=== PATIENT | male | born 1940 | race Caucasian/White ===

== ENCOUNTER → 2017-02-06 | Outpatient (CLI) | payer MEDICARE, OTHER ==
[~2017-02-06] MED LIST: AMLODIPINE5 MG PO; ANTIVERT 25MG25 MG PO; ASPIRIN 32325 MG/TAB PO; BENICAR40 MG PO; BUFFERED ASPIR325 M1 PO; CALTRATE 600 +1 TAB PO; CATAPRES 0.1MG0.1 MG PO; CELEXA40 MG PO; COUMADIN 5MG5 MG/TAB PO; COUMADIN 6MG6 MG/TAB PO; COZAAR100 MG PO; ERY-TAB500 MG PO; EXCEDRIN1 TAB PO; FISH OIL1 IU PO; FLAXSEED OIL1 CAP PO; FLONASE NASAL S16 GM NS; FLU VACCINE SQ; HCTZ PO; MUCINEX 60600 MG/TA1 PO; MULTIPLE VITAMI1 CAP PO; MULTIPLE VITAMI1 CTB PO; MVI; NORVASC 5MG5 MG/TAB PO; POTASSIUM CH2 MEQ/ML; PREDNISONE20 MG PO; PREVACID 15MG15 M1 PO; PRILOSEC 20MG20 MG PO; PRILOSEC40 MG PO; PROAIR HFA0.09 MG/AC IH; RANITIDINE 7575 MG PO; SINGULAIR 110 MG/TAB PO; STRATTERA80 MG PO; WARFARIN SODIUM5 MG PO; WELLBUTRIN SR150 MG PO; ZITHROMAX500 M2 PO; ZOLOFT 100MG100 MG PO; [UNRECOGNIZED DRUG - OTHER]
== END ==
LOC: BHSO 09:46
DX: F90.0 Attention-deficit hyperactivity disorder, predominantly inattentive type (principal)

== ENCOUNTER → 2017-04-09 | Outpatient (CLI) | payer MEDICARE, OTHER | LOC: BHSO 10:07 | DX: F90.0 Attention-deficit hyperactivity disorder, predominantly inattentive type (principal) ==

== ENCOUNTER → 2017-04-21 | Outpatient (CLI) | payer MEDICARE, OTHER | LOC: BHSO 09:46 | DX: F90.0 Attention-deficit hyperactivity disorder, predominantly inattentive type (principal) ==

== ENCOUNTER 2017-05-25 15:01 | Outpatient (RCR) | payer MEDICARE, OTHER | END 2017-08-23 | disposition still patient (30) | LOC: MKS.ESL.PT | DX: M15.0 Primary generalized (osteo)arthritis (principal); G14 Postpolio syndrome; R26.81 Unsteadiness on feet | CPT/HCPCS: G8978-GP; G8979-GP ==

== ENCOUNTER → 2017-06-08 | Outpatient (CLI) | payer MEDICARE, OTHER | LOC: BHSO 08:55 | DX: F90.0 Attention-deficit hyperactivity disorder, predominantly inattentive type (principal) ==

== ENCOUNTER → 2017-07-15 | Outpatient (CLI) | payer MEDICARE, OTHER | LOC: BHSO 08:43 | DX: F90.0 Attention-deficit hyperactivity disorder, predominantly inattentive type (principal) ==

== ENCOUNTER 2017-09-30 07:17 | Inpatient (IN) | payer MEDICARE, OTHER ==
[~2017-09-30] VITALS: Ht 188 cm; Wt 87.9 kg
[2017-09-30] VITALS (519 sets, daily range): BP systolic 123–148; BP diastolic 82–101; PULSE 13–96; TEMP 98.1–99.4; O2SAT 74–100
[2017-09-30] MEDS ORDERED: CARDIZEM 30MG T30 MG (07:36)
[2017-09-30 08:00] LABS: BASO # 0.1 (0.0-0.2); BASO % 0.4 % (0.0-2.0); EOS # 0.2 (0.0-0.7); EOS % 1.3 % (0-4.0); GRAN % 67.1 % (42.2-75.2); HEMATOCRIT 45.5 % (42.0-52.0); HEMOGLOBIN 15.9 g/dl (13.5-18.0); MEAN CELL VOLUME 88 fl (80.0-100.0); MEAN CORPUSCULAR HEMOGLOBIN 31 pg (27.0-31.0); MEAN CORPUSCULAR HGB CONC 35 g/dl (33.0-37.0); MEAN PLATELET VOLUME 11.3 fl (7.4-10.4); MONO # 1.2 (0.1-0.6); MONO % 8.9 % (1.7-9.3); PLATELET COUNT 269 K/mm3 (130-400); RED BLOOD COUNT 5.17 M/mm3 (4.20-5.60); WHITE BLOOD COUNT 13.4 K/mm3 (4.8-10.8)
[2017-09-30 08:03] LABS: INR 3.4 (0.8-3.0); PROTHROMBIN TIME 40.1 SECONDS (9.7-12.8)
[2017-09-30 08:31] LABS: ADJUSTED CALCIUM 9.4 mg/dL (8.4-10.2); ALBUMIN 4.1 gm/dL (3.5-5.0); BILIRUBIN,TOTAL 0.9 mg/dL (0.0-1.0); CALCIUM 9.5 mg/dL (8.4-10.2); CREATININE, serum 0.76 mg/dL (0.66-1.25); POTASSIUM 3.4 mmol/L (3.4-5.0); TOTAL PROTEIN 7.1 gm/dL (6.4-8.2)
[2017-09-30] MEDS ORDERED: CARDIZEM CD 12120 MG PO (13:30)
[2017-09-30] MEDS ORDERED: COUMADIN 5MG5 MG/TAB PO (13:33)
[2017-09-30] MEDS ORDERED: K-DUR20 MEQ PO (13:36)
[2017-09-30] MEDS ORDERED: TAMBOCOR 1100 MG/TAB PO (13:37)
[2017-09-30] MEDS ORDERED: RITALIN10 MG PO (13:39)
[2017-09-30] MEDS ORDERED: RESTORIL 1515 MG/CAP PO (13:43)
[2017-09-30 14:17] LABS: HEMATOCRIT 42.7 % (42.0-52.0); HEMOGLOBIN 14.8 g/dl (13.5-18.0)
[2017-09-30] MEDS ORDERED: PREDFORTE5ML (14:46)
[2017-09-30] MEDS ORDERED: NEVANAC 3 ML3 ML OU (14:48)
[2017-09-30 20:10] LABS: HEMOGLOBIN 12.9 g/dl (13.5-18.0)
[2017-09-30 20:15] LABS: HEMATOCRIT 36.6 % (42.0-52.0)
[2017-09-30 21:26] LABS: PH 7 (5-8); SQUAMOUS EPITHELIAL None Seen /hpf; URINE APPEARANCE Clear; URINE BACTERIA None Seen /hpf; URINE BILIRUBIN Negative (NEGATIVE); URINE BLOOD Negative (NEGATIVE); URINE COLOR Straw; URINE GLUCOSE 1+ (NEGATIVE); URINE KETONE Negative (NEGATIVE); URINE LEUKOCYTE ESTERASE Negative (NEGATIVE); URINE PROTEIN(semi-quant) Negative (NEGATIVE); URINE RBC 0-2 /hpf; URINE UROBILINOGEN Negative (NEGATIVE); URINE WBC None Seen /hpf
[2017-10-01] VITALS (659 sets, daily range): BP systolic 102–147; BP diastolic 63–91; PULSE 84–99; TEMP 98.2–98.7; O2SAT 66–100
[2017-10-01 00:36] LABS: HEMATOCRIT 40.6 % (42.0-52.0); HEMOGLOBIN 14.2 g/dl (13.5-18.0)
[2017-10-01 05:43] LABS: BASO % 0.1 % (0.0-2.0); GRAN # 19.7 (1.4-6.5); GRAN % 84.1 % (42.2-75.2); HEMATOCRIT 40.4 % (42.0-52.0); HEMOGLOBIN 13.8 g/dl (13.5-18.0); LYMPH # 2.3 (1.2-3.4); LYMPH % 9.7 % (20.0-51.0); MEAN CELL VOLUME 89 fl (80.0-100.0); MEAN CORPUSCULAR HEMOGLOBIN 31 pg (27.0-31.0); MEAN CORPUSCULAR HGB CONC 34 g/dl (33.0-37.0); MEAN PLATELET VOLUME 10.9 fl (7.4-10.4); MONO # 1.3 (0.1-0.6); MONO % 5.5 % (1.7-9.3); PLATELET COUNT 281 K/mm3 (130-400); RED BLOOD COUNT 4.53 M/mm3 (4.20-5.60)
[2017-10-01 05:46] LABS: WHITE BLOOD COUNT 23.4 K/mm3 (4.8-10.8)
[2017-10-01 05:54] LABS: PROTHROMBIN TIME 22.5 SECONDS (9.7-12.8)
[2017-10-01 05:57] LABS: CALCIUM 8.8 mg/dL (8.4-10.2); CREATININE, serum 0.64 mg/dL (0.66-1.25); MAGNESIUM 1.7 mg/dL (1.6-2.3); POTASSIUM 3.1 mmol/L (3.4-5.0)
[2017-10-01 06:23] LABS: COLLECTION METHOD CLEAN CATCH
[2017-10-02 03:46] VITALS: BP 133/72; PULSE 84; TEMP 98
[2017-10-02 07:47] VITALS: BP 138/76; PULSE 83; TEMP 98
[2017-10-02 08:16] LABS: ADD PATHOLOGY DIFF REVIEW NO
[2017-10-02 08:24] LABS: MEAN CELL VOLUME 91 fl (80.0-100.0); MEAN CORPUSCULAR HGB CONC 34 g/dl (33.0-37.0); MEAN PLATELET VOLUME 11.3 fl (7.4-10.4); PLATELET COUNT 222 K/mm3 (130-400); RED BLOOD COUNT 3.84 M/mm3 (4.20-5.60)
[2017-10-02 08:27] LABS: HEMATOCRIT 35.1 % (42.0-52.0); HEMOGLOBIN 11.9 g/dl (13.5-18.0); MEAN CORPUSCULAR HEMOGLOBIN 31 pg (27.0-31.0)
[2017-10-02 08:38] LABS: CALCIUM 8.8 mg/dL (8.4-10.2); CREATININE, serum 0.75 mg/dL (0.66-1.25); MAGNESIUM 2.1 mg/dL (1.6-2.3); POTASSIUM 3.4 mmol/L (3.4-5.0)
[2017-10-02 09:25] LABS: BAND 6 % (0-10); EOSINOPHIL 1 % (0-4); LYMPHOCYTE 17 % (20.0-51.0); NEUTROPHILS 67 % (42.0-75.2); TOTAL CELLS COUNTED 100
[2017-10-02 11:53] VITALS: BP 142/78; PULSE 82; TEMP 98.2
[2017-10-02 13:16] LABS: INR 1.3 (0.8-3.0); PROTHROMBIN TIME 15.1 SECONDS (9.7-12.8)
[2017-10-02] MEDS ORDERED: ZESTRIL 5MG5 MG PO (14:34)
[2017-10-02] MEDS ORDERED: NORCO 325 MG-51 TAB PO (14:35)
== END 2017-10-02 17:00 | disposition home or self-care (01) | DRG 151 ==
LOC: COL.ER 07:17 → ICU 10:00 → MEDICAL 10-01 11:03 → ICU 10-01 11:03 → MEDICAL 10-01 14:33
PROVIDERS: Emergency Medicine; Internal Medicine; Nurse Practitioner; Physician Assistant
PROC: 2Y41X5Z Packing of Nasal Region using Packing Material (ICD-10-PCS; principal; 2017-09-30)
DX: R04.0 Epistaxis (principal); Z79.01 Long term (current) use of anticoagulants; I16.0 Hypertensive urgency; I10 Essential (primary) hypertension; E87.6 Hypokalemia; I48.91 Unspecified atrial fibrillation; Z87.891 Personal history of nicotine dependence
CPT/HCPCS: 99223-AI; 99233-AI; 99238; G0378; J1170; J2270; J2405; J2550; J3010; J3475; J7030; J7050

== ENCOUNTER → 2018-01-06 | Outpatient (CLI) | payer MEDICARE, OTHER ==
[~2018-01-06] MED LIST changes: +CARDIZEM 30MG T30 MG; +CARDIZEM CD 12120 MG PO; +K-DUR20 MEQ PO; +NEVANAC 3 ML3 ML OU; +NORCO 325 MG-51 TAB PO; +PREDFORTE5ML; +RESTORIL 1515 MG/CAP PO; +RITALIN10 MG PO; +TAMBOCOR 1100 MG/TAB PO; +ZESTRIL 5MG5 MG PO
== END ==
LOC: BHSO 08:30
DX: F90.0 Attention-deficit hyperactivity disorder, predominantly inattentive type (principal)
CPT/HCPCS: G0463

== ENCOUNTER → 2018-04-07 | Outpatient (CLI) | payer MEDICARE, OTHER | LOC: BHSO 08:40 | DX: F90.0 Attention-deficit hyperactivity disorder, predominantly inattentive type (principal) | CPT/HCPCS: G0463 ==

== ENCOUNTER → 2018-06-16 | Outpatient (RCR) | payer MEDICARE, OTHER | END | disposition home or self-care (01) | LOC: MKS.ESL.PT | DX: M16.12 Unilateral primary osteoarthritis, left hip (principal); M70.61 Trochanteric bursitis, right hip; G14 Postpolio syndrome; Z96.641 Presence of right artificial hip joint | CPT/HCPCS: G8978-GP; G8979-GP ==

== ENCOUNTER → 2018-10-06 | Outpatient (CLI) | payer MEDICARE, OTHER | LOC: BHSO 07:51 | DX: F90.0 Attention-deficit hyperactivity disorder, predominantly inattentive type (principal) | CPT/HCPCS: G0463 ==

== ENCOUNTER 2018-10-29 08:00 | Outpatient (RCR) | payer MEDICARE, OTHER | END 2018-11-07 | disposition home or self-care (01) | LOC: MKS.ESL.PT | DX: M16.12 Unilateral primary osteoarthritis, left hip (principal); M70.61 Trochanteric bursitis, right hip; G14 Postpolio syndrome; Z96.641 Presence of right artificial hip joint ==

== ENCOUNTER → 2018-12-09 | Outpatient (CLI) | payer MEDICARE, OTHER | LOC: BHSO 08:48 | DX: F90.0 Attention-deficit hyperactivity disorder, predominantly inattentive type (principal) | CPT/HCPCS: G0463 ==

== ENCOUNTER 2019-01-10 08:30 | Outpatient (RCR) | payer MEDICARE, OTHER | END 2019-02-15 | LOC: MKS.ESL.PT | DX: M16.12 Unilateral primary osteoarthritis, left hip (principal); M70.61 Trochanteric bursitis, right hip ==

== ENCOUNTER 2019-05-16 08:30 | Outpatient (RCR) | payer MEDICARE, OTHER | END 2019-05-17 | LOC: MKS.ESL.PT | DX: M16.12 Unilateral primary osteoarthritis, left hip (principal); M70.61 Trochanteric bursitis, right hip; G14 Postpolio syndrome; M54.2 Cervicalgia; Z96.641 Presence of right artificial hip joint ==

== ENCOUNTER 2019-08-12 08:45 | Outpatient (RCR) | payer MEDICARE, OTHER | END 2019-08-18 | disposition home or self-care (01) | LOC: MKS.ESL.PT | DX: M16.12 Unilateral primary osteoarthritis, left hip (principal); G14 Postpolio syndrome; M54.2 Cervicalgia ==

== ENCOUNTER 2019-10-26 10:30 | Outpatient (RCR) | payer MEDICARE, OTHER | END 2019-12-01 | disposition home or self-care (01) | LOC: MKS.ESL.PT | DX: G14 Postpolio syndrome (principal); G89.29 Other chronic pain; R26.9 Unspecified abnormalities of gait and mobility; M54.2 Cervicalgia; M54.5 Low back pain ==

== ENCOUNTER 2019-12-07 16:44 | Outpatient (RCR) | payer MEDICARE, OTHER | END 2020-03-06 | disposition home or self-care (01) | LOC: MKS.ESL.PT | DX: M16.12 Unilateral primary osteoarthritis, left hip (principal); M54.2 Cervicalgia; G14 Postpolio syndrome ==

== ENCOUNTER 2020-05-30 13:45 | Outpatient (RCR) | payer MEDICARE, OTHER | END 2020-06-05 | disposition home or self-care (01) | LOC: MKS.ESL.PT | DX: M16.12 Unilateral primary osteoarthritis, left hip (principal); G14 Postpolio syndrome; M54.2 Cervicalgia ==

== ENCOUNTER 2020-09-21 14:00 | Outpatient (RCR) | payer MEDICARE, OTHER | END 2020-10-02 | disposition home or self-care (01) | LOC: MKS.ESL.PT | DX: G89.29 Other chronic pain (principal) ==

== ENCOUNTER 2020-10-15 16:26 | Outpatient (RCR) | payer MEDICARE, OTHER | END 2020-12-03 | disposition home or self-care (01) | LOC: MKS.ESL.PT | DX: M16.12 Unilateral primary osteoarthritis, left hip (principal); M54.2 Cervicalgia; G14 Postpolio syndrome ==

== ENCOUNTER 2021-01-14 08:39 | Outpatient (RCR) | payer MEDICARE, OTHER | END 2021-02-08 11:25 | disposition home or self-care (01) | LOC: MKS.ESL.PT 08:39 | DX: M16.12 Unilateral primary osteoarthritis, left hip (principal); G14 Postpolio syndrome; M54.2 Cervicalgia ==

== ENCOUNTER → 2021-03-04 | Outpatient (CLI) | payer MEDICARE, OTHER ==
[~2021-03-04] MED LIST changes: +ADVIL200 MG PO; +BETAPACE 80MG80 MG PO; +COZAAR 50MG50 MG/TAB PO; +ELIQUIS 5MG PO; +FLONASE SENSIM9.9 ML NS; +HCTZ 25MG TAB25 MG PO; +KLONOPIN 0.5MG0.5 MG PO; +LIPITOR 80MG80 MG PO; +NORVASC 10MG10 MG PO; +OMEGA-3 1000 MG1 CAP PO; +ROBAXIN 50500 MG/TAB PO; +TYLENOL 325MG325 MG PO; +VITAMIN D31000 I1 PO; +WELLBUTRIN XL300 M1 PO
== END ==
LOC: COL.RAD 14:31
DX: M43.22 Fusion of spine, cervical region (principal); M50.30 Other cervical disc degeneration, unspecified cervical region; M47.12 Other spondylosis with myelopathy, cervical region

== ENCOUNTER → 2021-03-04 | Outpatient (CLI) | payer MEDICARE, OTHER | LOC: MHCPAIN 13:20 | DX: M47.812 Spondylosis without myelopathy or radiculopathy, cervical region (principal); M47.12 Other spondylosis with myelopathy, cervical region; R51.9 Headache, unspecified; G89.29 Other chronic pain | CPT/HCPCS: G0463 ==

== ENCOUNTER → 2021-03-25 | Outpatient (CLI) | payer MEDICARE, OTHER | LOC: MHCPAIN 09:47 | DX: M79.18 Myalgia, other site (principal); M54.81 Occipital neuralgia; R51.9 Headache, unspecified; M54.2 Cervicalgia | CPT/HCPCS: J0461; J1040 ==

== ENCOUNTER → 2021-04-16 | Outpatient (CLI) | payer MEDICARE, OTHER | LOC: COL.RAD 14:24 | DX: M47.812 Spondylosis without myelopathy or radiculopathy, cervical region (principal); Z98.1 Arthrodesis status ==

== ENCOUNTER 2021-07-03 17:16 | Inpatient (IN) | payer MEDICARE, OTHER ==
[~2021-07-03] VITALS: Ht 180.3 cm; Wt 90.2 kg
[~2021-07-03 17:16] MED LIST changes: -ADVIL200 MG PO; -BETAPACE 80MG80 MG PO; -COZAAR 50MG50 MG/TAB PO; -ELIQUIS 5MG PO; -FLONASE SENSIM9.9 ML NS; -HCTZ 25MG TAB25 MG PO; -KLONOPIN 0.5MG0.5 MG PO; -LIPITOR 80MG80 MG PO; -NORVASC 10MG10 MG PO; -OMEGA-3 1000 MG1 CAP PO; -ROBAXIN 50500 MG/TAB PO; -TYLENOL 325MG325 MG PO; -VITAMIN D31000 I1 PO; -WELLBUTRIN XL300 M1 PO
[2021-07-03 18:11] LABS: BASO # 0.1 (0.0-0.2); BASO % 0.7 % (0.0-2.0); EOS # 0.3 (0.0-0.7); EOS % 2.8 % (0-4.0); GRAN % 60.1 % (42.2-75.2); HEMATOCRIT 49.5 % (42.0-52.0); HEMOGLOBIN 16.7 g/dl (13.5-18.0); LYMPH % 25.9 % (20.0-51.0); MEAN CELL VOLUME 91 fl (80.0-100.0); MEAN CORPUSCULAR HEMOGLOBIN 31 pg (27.0-31.0); MEAN CORPUSCULAR HGB CONC 34 g/dl (33.0-37.0); MEAN PLATELET VOLUME 11.1 fl (7.4-10.4); MONO # 1.2 (0.1-0.6); MONO % 10.2 % (1.7-9.3); PLATELET COUNT 320 K/mm3 (130-400); RED BLOOD COUNT 5.44 M/mm3 (4.20-5.60); REDCELL DISTRIBUTION WIDTH-CV 12.8 % (11.5-14.5)
[2021-07-03 18:20] LABS: ALBUMIN 4.2 gm/dL (3.5-5.0); BILIRUBIN,TOTAL 0.4 mg/dL (0.0-1.0); CALCIUM 9.3 mg/dL (8.4-10.2); CREATININE, serum 0.96 (0.66-1.25); POTASSIUM 3.8 mmol/L (3.4-5.0); TOTAL PROTEIN 7.7 gm/dL (6.4-8.2)
[2021-07-03 18:32] LABS: TROPONIN-I 0.014 ng/mL (0.000-0.035)
[2021-07-03] MEDS ORDERED: FLONASE SENSIM9.9 ML NS (19:05)
[2021-07-03] MEDS ORDERED: KLONOPIN 0.5MG0.5 MG PO (19:06)
[2021-07-03] MEDS ORDERED: NORVASC 10MG10 MG PO (19:07)
[2021-07-03] MEDS ORDERED: HCTZ 25MG TAB25 MG PO (19:07)
[2021-07-03] MEDS ORDERED: COZAAR100 MG PO (19:07)
[2021-07-03] MEDS ORDERED: WELLBUTRIN XL300 M1 PO (19:08)
[2021-07-03] MEDS ORDERED: PRILOSEC 20MG20 MG PO (19:08)
[2021-07-03] MEDS ORDERED: OMEGA-3 1000 MG1 CAP PO (19:11)
[2021-07-03] MEDS ORDERED: VITAMIN D31000 I1 PO (19:11)
[2021-07-03] MEDS ORDERED: EXCEDRIN1 TAB PO (19:12)
[2021-07-03] MEDS ORDERED: TYLENOL 325MG325 MG PO (19:12)
[2021-07-03] MEDS ORDERED: ADVIL200 MG PO (19:13)
--- NOTE | 2021-07-03 21:53 | NUR ---
PATIENT ARRIVED FROM ER VIA [facility] BY NURSE OSEGUERA. PATIENT ALERT AND ORIENTED X4. IV HEPARIN AND IV CARDIZEM. PATIENT ORIENTED TO ROOM, CALL LIGHT WITHIN REACH.
[2021-07-03 22:02] VITALS: BP 131/75; PULSE 82; TEMP 97.9
[2021-07-03 22:08] LABS: TSH w REFLEX 2.24 uIU/mL (0.465-4.680)
[2021-07-03 22:59] VITALS: BP 117/75; PULSE 81; TEMP 98
[2021-07-04] VITALS (19 sets, daily range): BP systolic 110–143; BP diastolic 68–92; PULSE 57–83; TEMP 97.5–98.3
--- NOTE | 2021-07-04 02:26 | NUR ---
HEPARIN-XA 1.56 STOPPED INFUSION AT 0225AM FOR 1 HOUR.
--- NOTE | 2021-07-04 04:07 | NUR ---
HEPARIN RESTARTED AT 1550 UNITS/HR. NEXT HEPARIN-XA AT 0930AM.
[2021-07-04 07:17] LABS: BASO # 0.1 (0.0-0.2); BASO % 0.7 % (0.0-2.0); EOS # 0.3 (0.0-0.7); EOS % 3.1 % (0-4.0); GRAN # 6.1 (1.4-6.5); GRAN % 57.6 % (42.2-75.2); HEMATOCRIT 47.1 % (42.0-52.0); HEMOGLOBIN 15.9 g/dl (13.5-18.0); LYMPH # 3.1 (1.2-3.4); LYMPH % 29.1 % (20.0-51.0); MEAN CELL VOLUME 91 fl (80.0-100.0); MEAN CORPUSCULAR HEMOGLOBIN 31 pg (27.0-31.0); MEAN CORPUSCULAR HGB CONC 34 g/dl (33.0-37.0); MEAN PLATELET VOLUME 11.5 fl (7.4-10.4); MONO % 9.2 % (1.7-9.3); PLATELET COUNT 264 K/mm3 (130-400); RED BLOOD COUNT 5.17 M/mm3 (4.20-5.60); REDCELL DISTRIBUTION WIDTH-CV 12.8 % (11.5-14.5)
[2021-07-04 07:30] LABS: CALCIUM 8.9 mg/dL (8.4-10.2); CREATININE, serum 0.78 (0.66-1.25); POTASSIUM 3.2 mmol/L (3.4-5.0)
[2021-07-04 13:02] LABS: PARTIAL THROMBOPLASTIN TIME 53.3 SECONDS (26.0-37.0)
--- NOTE | 2021-07-04 13:51 | NUR ---
Patient is seen in bed and his Rosa walked in while we were talking. Patient lives at home with his Rosa, #[phone]. Patient states he has a DPOA and living will completed that names Rosa as his decision maker, copies on file with attorney recruiter and this hospital but no record is found in [facility] at this time. Patient states he uses crutches/walking sticks d/t hip pain and a CPAP at home. His PCP is Dr. Winston Vasquez here in [place]. Preferred pharmacy [facility] in [facility]. Patient does not anticipate any home health needs or have any concerns about this hospital stay. Rosa is in agreement and patient expects to return home with his . DISCHARGE PLAN: HOME WITH SUPPORT
--- NOTE | 2021-07-04 15:11 | NUR ---
1000;PLANS SPONGE BATH AFTER STABLE CARDIO-VERSION THIS A.M. PER
--- NOTE | 2021-07-04 15:39 | NUR ---
Pt A&O, independent in room, on room air, breathing is even and unlabored. Pt denies pain, dizziness, N/V/D, chest pain, SOB. Pt hep XA @ 0930 lab draw elevated >1, stopped 2 hrs per protocol, redraw Hep XA 2 hrs post. Lab up to room to redraw @ 1215. Pt down for rn labor delivery procedure @ 1300 prior to hep xa lab results returning. Pt returned from procedure @ 1415. Pt A&O, denies pain. Tolerating PO well. Hep gtt and cardizem gtt DC'd. K+ replacement switched from IV to PO. Pt tolerating well. No further concerns expressed at this time. IVs INT.
[2021-07-05] VITALS (15 sets, daily range): BP systolic 94–151; BP diastolic 55–89; PULSE 49–74; TEMP 97.4–98.4
--- NOTE | 2021-07-05 06:15 | NUR ---
PATIENT SLEPT WELL NO COMPLAINTS OVER NIGHT. VSS. DENIES SOB OR CHEST PAIN. NPO FOR LOOP RECORDER REMOVAL TODAY. PATIENT INDEPENDENT IN ROOM. WILL CONTINUE TO MONITOR.
[2021-07-05 07:02] LABS: HEMATOCRIT 49.1 % (42.0-52.0); HEMOGLOBIN 16.1 g/dl (13.5-18.0); MEAN CELL VOLUME 93 fl (80.0-100.0); MEAN CORPUSCULAR HEMOGLOBIN 30 pg (27.0-31.0); MEAN CORPUSCULAR HGB CONC 33 g/dl (33.0-37.0); MEAN PLATELET VOLUME 11.7 fl (7.4-10.4); PLATELET COUNT 278 K/mm3 (130-400); RED BLOOD COUNT 5.31 M/mm3 (4.20-5.60); REDCELL DISTRIBUTION WIDTH-CV 12.8 % (11.5-14.5)
[2021-07-05 07:13] LABS: CALCIUM 9.1 mg/dL (8.4-10.2); CREATININE, serum 0.83 (0.66-1.25); MAGNESIUM 2.3 mg/dL (1.6-2.3); POTASSIUM 4.2 mmol/L (3.4-5.0)
--- NOTE | 2021-07-05 09:45 | NUR ---
Patient alert and oriented, answers questions appropriately. See assessment. Heart tones strong and even, radial pulses palpable. No c/o chest pain or pressure. Telemetry in place. Ambulates independently in room. No c/o at this time.
--- NOTE | 2021-07-05 10:45 | NUR ---
Initial visit; Patient thanked Iron Worker Apprentice for looking in on him, offering prayer and God's blessings.
--- NOTE | 2021-07-05 11:22 | NUR ---
To laborer shaft sinking with laborer shaft sinking staff at this time.
--- NOTE | 2021-07-05 11:39 | NUR ---
SEE MERGE DOCUMENTATION FOR MEDICATION ADMINISTRATION TIMES AND INTRA/POST PROCEDURE SEDATION ASSESSMENTS.
--- NOTE | 2021-07-05 14:05 | NUR ---
Patient returned from laborer hoisting at 1215. Assessment unchanged except dressing to left chest wall CDI. No c/o pain or discomfort. No other c/o at this time.
--- NOTE | 2021-07-05 19:17 | NUR ---
PATIENT RESTING IN BED ASSESSMENT DONE. A+OX4. DENIES ANY DISCOMFORT, NO CHEST PAIN. AT BEDSIDE. CALL LIGHT WITHIN REACH. WILL CONTINUE TO MONITOR.
[2021-07-06 00:08] VITALS: BP 148/74; PULSE 59; TEMP 97.9
[2021-07-06 03:42] VITALS: BP 137/73; PULSE 58; TEMP 98
[2021-07-06 06:46] LABS: HEMATOCRIT 44.6 % (42.0-52.0); HEMOGLOBIN 14.9 g/dl (13.5-18.0); MEAN CELL VOLUME 93 fl (80.0-100.0); MEAN CORPUSCULAR HEMOGLOBIN 31 pg (27.0-31.0); MEAN CORPUSCULAR HGB CONC 33 g/dl (33.0-37.0); MEAN PLATELET VOLUME 11.7 fl (7.4-10.4); PLATELET COUNT 222 K/mm3 (130-400); REDCELL DISTRIBUTION WIDTH-CV 12.6 % (11.5-14.5)
[2021-07-06 06:54] LABS: CALCIUM 8.9 mg/dL (8.4-10.2); CREATININE, serum 0.85 (0.66-1.25); POTASSIUM 4.1 mmol/L (3.4-5.0)
[2021-07-06 08:00] VITALS: BP 136/79; PULSE 63; TEMP 97.5
--- NOTE | 2021-07-06 10:55 | NUR ---
Patient alert and oriented, answers questions appropriately. See assessment. Heart tones strong and even, radial pulses palpable. No c/o chest pain or pressure. Incision site to left chest with edges well approximated, no redness or drainage noted, steri strips in place. Anxious to discharge to home. No c/o at this time.
[2021-07-06] MEDS ORDERED: BETAPACE 80MG80 MG PO (11:01)
[2021-07-06] MEDS ORDERED: ELIQUIS 5MG PO (11:01)
[2021-07-06] MEDS ORDERED: COZAAR 50MG50 MG/TAB PO (11:05)
--- NOTE | 2021-07-06 12:25 | NUR ---
Discharge instructions reviewed with patient, verbalized understanding. Discharged ambulatory to auto/home at 1205.
== END 2021-07-06 12:05 | disposition home or self-care (01) | DRG 260 ==
LOC: COL.ER 17:16 → SURG 18:47
PROVIDERS: Nurse Practitioner; Nurse Practitioner Family; Physician Assistant; Student in an Organized Health Care Education/Training Program; ADMIT Internal Medicine
PROC: 5A2204Z Restoration of Cardiac Rhythm, Single (ICD-10-PCS; principal; 2021-07-03)
PROC: 0JH632Z Insertion of Monitoring Device into Chest Subcutaneous Tissue and Fascia, Percutaneous Approach (ICD-10-PCS; 2021-07-05)
PROC: 0JPT32Z Removal of Monitoring Device from Trunk Subcutaneous Tissue and Fascia, Percutaneous Approach (ICD-10-PCS; 2021-07-05)
DX: I48.91 Unspecified atrial fibrillation (principal); I21.A1 Myocardial infarction type 2; I47.1 Supraventricular tachycardia; I10 Essential (primary) hypertension; Z96.641 Presence of right artificial hip joint; K21.9 Gastro-esophageal reflux disease without esophagitis; G89.29 Other chronic pain; E87.6 Hypokalemia; R73.9 Hyperglycemia, unspecified; D72.829 Elevated white blood cell count, unspecified; Z20.822 Contact with and (suspected) exposure to COVID-19
CPT/HCPCS: 99223-AI; 99232-AI; 99239; C1764; J1644; J2250; J2704; J3010; J3480

== ENCOUNTER 2021-07-24 13:00 | Outpatient (RCR) | payer MEDICARE, OTHER ==
[~2021-07-24 13:00] MED LIST changes: +ADVIL200 MG PO; +BETAPACE 80MG80 MG PO; +COZAAR 50MG50 MG/TAB PO; +ELIQUIS 5MG PO; +FLONASE SENSIM9.9 ML NS; +HCTZ 25MG TAB25 MG PO; +KLONOPIN 0.5MG0.5 MG PO; +NORVASC 10MG10 MG PO; +OMEGA-3 1000 MG1 CAP PO; +TYLENOL 325MG325 MG PO; +VITAMIN D31000 I1 PO; +WELLBUTRIN XL300 M1 PO
== END 2021-08-18 | disposition still patient (30) ==
LOC: MKS.ESL.PT
DX: M54.2 Cervicalgia (principal)

== ENCOUNTER 2021-09-05 07:22 | Day surgery (SDC) | payer MEDICARE, OTHER ==
[~2021-09-05] VITALS: Ht 180.3 cm; Wt 91.0 kg
[2021-09-05] VITALS (9 sets, daily range): BP systolic 126–164; BP diastolic 76–98; PULSE 60–66; TEMP 98.5
[2021-09-05] MEDS ORDERED: ELIQUIS 5MG PO (08:44)
[2021-09-05 08:49] LABS: HEMATOCRIT 42.8 % (42.0-52.0); HEMOGLOBIN 14.6 g/dl (13.5-18.0); MEAN CELL VOLUME 89 fl (80.0-100.0); MEAN CORPUSCULAR HEMOGLOBIN 30 pg (27.0-31.0); MEAN CORPUSCULAR HGB CONC 34 g/dl (33.0-37.0); MEAN PLATELET VOLUME 10.6 fl (7.4-10.4); PLATELET COUNT 302 K/mm3 (130-400); REDCELL DISTRIBUTION WIDTH-CV 13.4 % (11.5-14.5)
[2021-09-05] MEDS ORDERED: COZAAR100 MG PO (08:50)
[2021-09-05] MEDS ORDERED: NORVASC 5MG5 MG/TAB PO (08:53)
[2021-09-05] MEDS ORDERED: ROBAXIN 50500 MG/TAB PO (08:54)
[2021-09-05 09:05] LABS: PROTHROMBIN TIME 11.1 SECONDS (9.7-12.8)
[2021-09-05 09:06] LABS: CALCIUM 9.1 mg/dL (8.4-10.2); CREATININE, serum 0.79 mg/dL (0.72-1.25); POTASSIUM 3.6 mmol/L (3.5-4.5)
[2021-09-05 09:08] LABS: PARTIAL THROMBOPLASTIN TIME 26.6 SECONDS (26.0-37.0)
[2021-09-05] MEDS ORDERED: LIPITOR 80MG80 MG PO (10:29)
--- NOTE | 2021-09-05 10:30 | NUR ---
Pt back from analytical laboratory technician. Pt is relaxed, resting comfortably. Pt is pwd with reg and unlabored respirations. TR band in place to rt wrist cms intact. telemetry initiated. lunch ordered. call light in reach.
--- NOTE | 2021-09-05 13:30 | NUR ---
Pt has done well during his recovery. TR band has been deflated with no problem. Site dressed with bandaid, folded 2x2 and coban. cms remains intact distal. Pt has been up and ambulatory in room with no problem. IV is dc'd with cath intact dressing applied. I have reviewed dc/rx and fu instructions with pt who verbalized understanding. I escorted pt to exit via wheelchair.
== END 2021-09-05 20:10 | disposition home or self-care (01) ==
LOC: COL.CAR 07:22
PROVIDERS: Internal Medicine Cardiovascular Disease
DX: I25.10 Atherosclerotic heart disease of native coronary artery without angina pectoris (principal); I10 Essential (primary) hypertension; I48.91 Unspecified atrial fibrillation; I48.92 Unspecified atrial flutter; R94.39 Abnormal result of other cardiovascular function study
CPT/HCPCS: J1644; J2250; J3010; Q9967

== ENCOUNTER → 2022-06-04 | Outpatient (CLI) | payer MEDICARE, OTHER ==
[~2022-06-04] MED LIST changes: +LIPITOR 80MG80 MG PO; +ROBAXIN 50500 MG/TAB PO
== END ==
LOC: COL.RAD 05-15 10:30
DX: M25.552 Pain in left hip (principal)

== ENCOUNTER 2023-03-25 11:15 | Outpatient (RCR) | payer MEDICARE, OTHER | END 2023-03-29 | disposition home or self-care (01) | LOC: MKS.ESL.PT | DX: R26.89 Other abnormalities of gait and mobility (principal); Z96.642 Presence of left artificial hip joint ==

== ENCOUNTER 2023-07-31 12:08 | Outpatient (RCR) | payer MEDICARE, OTHER | END 2023-08-29 | disposition home or self-care (01) | LOC: MKS.ESL.PT | DX: R26.89 Other abnormalities of gait and mobility (principal); Z96.642 Presence of left artificial hip joint ==

== ENCOUNTER 2023-12-29 13:00 | Outpatient (RCR) | payer MEDICARE, OTHER | END 2023-12-30 | disposition home or self-care (01) | LOC: PT.GENESIS | DX: M25.552 Pain in left hip (principal); M54.50 Low back pain, unspecified; R26.89 Other abnormalities of gait and mobility; Z96.642 Presence of left artificial hip joint ==

== ENCOUNTER 2024-01-19 13:00 | Outpatient (RCR) | payer MEDICARE, OTHER | END 2024-01-28 | disposition home or self-care (01) | LOC: PT.GENESIS | DX: M25.552 Pain in left hip (principal); M54.50 Low back pain, unspecified ==

== ENCOUNTER 2024-08-16 13:01 | Outpatient (RCR) | payer MEDICARE, OTHER | END 2024-08-29 | disposition home or self-care (01) | LOC: PT.GENESIS | DX: G14 Postpolio syndrome (principal); M48.061 Spinal stenosis, lumbar region without neurogenic claudication; R26.89 Other abnormalities of gait and mobility; M25.559 Pain in unspecified hip ==

== ENCOUNTER → 2024-08-17 | Outpatient (CLI) | payer MEDICARE | LOC: COL.RAD 15:11 | DX: K59.00 Constipation, unspecified (principal) ==

== ENCOUNTER → 2024-08-22 | Outpatient (CLI) | payer MEDICARE | LOC: COL.RAD 14:18 | DX: K59.00 Constipation, unspecified (principal) ==

== ENCOUNTER → 2024-09-20 | Outpatient (CLI) | payer MEDICARE, OTHER | LOC: MHCPAIN 10:09 | DX: M43.12 Spondylolisthesis, cervical region (principal); M50.022 Cervical disc disorder at C5-C6 level with myelopathy; Z96.641 Presence of right artificial hip joint; G14 Postpolio syndrome; M48.062 Spinal stenosis, lumbar region with neurogenic claudication | CPT/HCPCS: G0463 ==